=== PATIENT | female | born 1985 | race Caucasian/White ===

== ENCOUNTER 2021-10-16 04:19 | Emergency (ER) | payer SELFPAY ==
[~2021-10-16] VITALS: Ht 157.5 cm; Wt 49.9 kg
[2021-10-16] MEDS ORDERED: ZITHROMAX500 MG PO (04:24)
[2021-10-16] MEDS ORDERED: CEFIXIME400 MG PO (04:24)
== END 2021-10-16 04:40 | disposition home or self-care (01) ==
LOC: ER 04:34
DX: N89.8 Other specified noninflammatory disorders of vagina (principal); F17.210 Nicotine dependence, cigarettes, uncomplicated
CPT/HCPCS: 99282

== ENCOUNTER 2021-11-17 19:19 | Emergency (ER) | payer SELFPAY ==
[~2021-11-17] VITALS: Ht 157.5 cm; Wt 49.9 kg
[~2021-11-17 19:19] MED LIST: CEFIXIME400 MG PO; ZITHROMAX500 MG PO
[2021-11-17] MEDS ORDERED: PENICILLIN G BENZATHINE LA 1.2 MU TBX IM STA (19:22)
[2021-11-17] MEDS ORDERED: PENICILLIN G BENZATHINE LA 1.2 MU TBX ONE (19:34)
== END 2021-11-17 20:25 | disposition home or self-care (01) ==
LOC: ER 19:24
DX: A53.9 Syphilis, unspecified (principal)
CPT/HCPCS: 99282; J0561